=== PATIENT | female | born 1945 | race Caucasian/White ===

== ENCOUNTER → 2017-01-27 | Outpatient (CLI) | payer MEDICARE, OTHER | LOC: ECHO 11:30 | DX: Z12.31 Encounter for screening mammogram for malignant neoplasm of breast (principal); R06.09 Other forms of dyspnea; I51.7 Cardiomegaly; I34.0 Nonrheumatic mitral (valve) insufficiency | CPT/HCPCS: ECHO; 93306; G0202 ==

== ENCOUNTER → 2017-02-23 | Outpatient (CLI) | payer MEDICARE, OTHER | LOC: MAMO 02-12 11:00 | DX: R92.8 Other abnormal and inconclusive findings on diagnostic imaging of breast (principal); Z80.3 Family history of malignant neoplasm of breast | CPT/HCPCS: G0206 ==

== ENCOUNTER 2020-10-10 12:06 | Observation (INO) | payer MEDICARE, OTHER ==
[~2020-10-10] VITALS: Ht 162.6 cm; Wt 94.3 kg
[~2020-10-10 12:06] MED LIST: ASPIR-TRIN325 MG PO; ASPIRIN EC81 MG PO; ATENOLOL50 MG PO; DILTIAZEM 24HR120 M1 PO; ELIQUIS 5 MG TAB5 MG PO; LISINOPRIL10 MG PO; LOPRESSOR 50 MG50 MG PO; OMNICEF 300 MG300 MG PO; VITAMIN B-121000 MCG PO; VITAMIN C500 M4 PO; ZOCOR20 MG PO
[2020-10-10 12:59] LABS: HEMOGLOBIN 13.2 gm/dl (12.3-15.3); RED BLOOD COUNT 4.84 M/UL (4.00-5.10); WHITE BLOOD COUNT 11.9 K/UL (4.5-11.0)
[2020-10-10] MEDS ORDERED: WARFARIN SODIUM4 MG PO (16:28)
[2020-10-10] MEDS ORDERED: SYNTHROID25 MCG PO (16:29)
[2020-10-10] MEDS ORDERED: ULTRAM50 MG PO (16:29)
[2020-10-10] MEDS ORDERED: ZESTRIL10 MG PO (16:30)
[2020-10-10] MEDS ORDERED: TYLENOL PM EX-1 EACH PO (16:31)
[2020-10-11 03:50] LABS: HEMOGLOBIN 12.4 gm/dl (12.3-15.3); RED BLOOD COUNT 4.6 M/UL (4.00-5.10); WHITE BLOOD COUNT 9.9 K/UL (4.5-11.0)
[2020-10-11 04:48] LABS: BUN/CREATININE RATIO 14 (0-10)
[2020-10-12 02:53] LABS: RED BLOOD COUNT 4.35 M/UL (4.00-5.10); WHITE BLOOD COUNT 10.2 K/UL (4.5-11.0)
[2020-10-13] MEDS ORDERED: DILTIAZEM 24HR180 M1 PO (09:07)
== END 2020-10-13 12:20 | disposition home or self-care (01) ==
LOC: ER1 12:06 → PROG CARE 14:39 → CDU 14:39 → PROG CARE 19:34
PROVIDERS: Physician Assistant Medical; ADMIT Internal Medicine
DX: I48.19 Other persistent atrial fibrillation (principal); I13.0 Hypertensive heart and chronic kidney disease with heart failure and stage 1 through stage 4 chronic kidney disease, or unspecified chronic kidney disease; N17.9 Acute kidney failure, unspecified; N18.30 Chronic kidney disease, stage 3 unspecified; J98.11 Atelectasis; E78.5 Hyperlipidemia, unspecified; E03.9 Hypothyroidism, unspecified; E66.9 Obesity, unspecified; Z20.822 Contact with and (suspected) exposure to COVID-19; Z91.14 Patient's other noncompliance with medication regimen; Z79.01 Long term (current) use of anticoagulants; Z79.899 Other long term (current) drug therapy; Z88.1 Allergy status to other antibiotic agents; F17.290 Nicotine dependence, other tobacco product, uncomplicated
CPT/HCPCS: 36415; 71045; 80048; 80053; 82550; 82553; 83735; 83874; 83880; 84439; 84443; 84484; 85025; 85027; 85610; 93005; 94760; 96374; 99284; G0378; U0002

== ENCOUNTER → 2022-01-20 | Outpatient (CLI) | payer MEDICARE, OTHER ==
[~2022-01-20] MED LIST changes: +DILTIAZEM 24HR180 M1 PO; +SYNTHROID25 MCG PO; +TYLENOL PM EX-1 EACH PO; +ULTRAM50 MG PO; +WARFARIN SODIUM4 MG PO; +ZESTRIL10 MG PO
== END ==
LOC: OPSV 16:42
DX: R79.83 Abnormal findings of blood amino-acid level (principal)
CPT/HCPCS: G0463